=== PATIENT | male | born 1995 | race Caucasian/White ===

== ENCOUNTER 2022-05-30 17:42 | Emergency (ER) | payer BC ==
[~2022-05-30] VITALS: Ht 180.3 cm; Wt 74.8 kg
[2022-05-30 17:44] VITALS: BP 111/68
[2022-05-30 19:00] LABS: BASO # 0.1 10*3/uL (0.0-0.1); BASO % 0.6 % (0.0-1.0); EOS # 0.2 10*3/uL (0.0-0.4); EOS % 1.8 % (1.0-4.0); LYMPH # 2.7 10*3/uL (1.3-4.4); LYMPH % 27.9 % (27.0-41.0); MEAN CELL VOLUME 97.8 fl (80.0-94.0); MEAN CORPUSCULAR HGB 32.3 pg (27.0-31.0); MONO # 1.1 10*3/uL (0.1-1.0); MONO % 11.2 % (3.0-9.0); NEUT # 5.6 10*3/uL (2.3-7.9); NEUT % 58.3 % (47.0-73.0); PLATELET COUNT AUTOMATED 212 10*3/uL (130-400); RED BLOOD COUNT 4.09 10*6/uL (4.50-5.90); RED CELL DISTRI WIDTH 12.6 % (0-14.5); WHITE BLOOD COUNT 9.7 10*3/uL (4.8-10.8)
[2022-05-30 19:28] LABS: ALKALINE PHOSPHATASE 61 U/L (45-117); BUN 20 mg/dl (7-24); CHLORIDE 104 mmol/L (98-107); CREATININE 1.38 mg/dL (0.70-1.30); POTASSIUM 3.9 mmol/L (3.5-5.1); SGOT/AST 259 IU/L (3-35); SGPT/ALT 119 U/L (12-78); SODIUM 137 mmol/L (136-145); TOTAL PROTEIN 6.6 gm/dL (6.4-8.2)
[2022-05-30 21:21] LABS: ETHYL ALCOHOL < 3.0 mg/dl (<3); URIC ACID 5.8 mg/dL (3.5-7.2)
== END 2022-05-30 21:05 | disposition home or self-care (01) ==
LOC: ED 17:42
PROVIDERS: Nurse Practitioner Family
DX: K75.89 Other specified inflammatory liver diseases (principal); Z87.891 Personal history of nicotine dependence

== ENCOUNTER → 2022-06-09 | Outpatient (CLI) | payer BC ==
[2022-06-09 11:51] LABS: MEAN CORPUSCULAR HGB 31.7 pg (27.0-31.0); MEAN PLATELET VOLUME 9.9 fl (9.6-12.3); RED BLOOD COUNT 4.79 10*6/uL (4.50-5.90); RED CELL DISTRI WIDTH 12.1 % (0-14.5); WHITE BLOOD COUNT 7.4 10*3/uL (4.8-10.8)
[2022-06-09 12:10] LABS: ALKALINE PHOSPHATASE 79 U/L (45-117); BUN 9 mg/dl (7-24); CHLORIDE 104 mmol/L (98-107); CREATININE 1.35 mg/dL (0.70-1.30); POTASSIUM 3.8 mmol/L (3.5-5.1); SGOT/AST 18 IU/L (3-35); SGPT/ALT 49 U/L (12-78); SODIUM 139 mmol/L (136-145); TOTAL PROTEIN 7.5 gm/dL (6.4-8.2)
[2022-06-10 05:06] LABS: HBSAG Negative (Negative); HEP B CORE AB, IGM Negative (Negative); HEPATITIS C ANTIBODY <0.1 (0.0-0.9)
[2022-06-20 22:05] LABS: 7-AMINOCLONAZEPAM Negative (.); MIDAZOLAM Negative (.)
== END | disposition home or self-care (01) ==
LOC: LAB 11:24
PROVIDERS: ATTEND Family Medicine
DX: Z79.899 Other long term (current) drug therapy (principal)

== ENCOUNTER 2022-11-30 13:34 | Inpatient (IN) | payer BC ==
[~2022-11-30] VITALS: Ht 180.3 cm; Wt 75.3 kg
[2022-11-30 14:12] VITALS: BP 112/81
[2022-11-30 15:33] LABS: BASO # 0.1 10*3/uL (0.0-0.1); BASO % 0.9 % (0.0-1.0); EOS # 0.5 10*3/uL (0.0-0.4); EOS % 5.6 % (1.0-4.0); HEMATOCRIT 46.6 % (42.0-52.0); LYMPH # 2.5 10*3/uL (1.3-4.4); LYMPH % 27.6 % (27.0-41.0); MEAN CORPUSCULAR HGB 29.7 pg (27.0-31.0); MEAN PLATELET VOLUME 9.7 fl (9.6-12.3); MONO # 0.8 10*3/uL (0.1-1.0); MONO % 8.7 % (3.0-9.0); NEUT # 5.1 10*3/uL (2.3-7.9); NEUT % 56.9 % (47.0-73.0); PLATELET COUNT AUTOMATED 302 10*3/uL (130-400); RED BLOOD COUNT 5.18 10*6/uL (4.50-5.90); RED CELL DISTRI WIDTH 12.7 % (0-14.5); WHITE BLOOD COUNT 8.9 10*3/uL (4.8-10.8)
[2022-11-30 15:49] LABS: ALKALINE PHOSPHATASE 163 U/L (46-116); BUN 13 mg/dl (9-23); CHLORIDE 103 mmol/L (98-107); POTASSIUM 3.6 mmol/L (3.4-5.1); SGPT/ALT 474 U/L (10-49); TOTAL PROTEIN 7.9 gm/dL (6.0-8.0)
[2022-11-30 15:50] LABS: ETHYL ALCOHOL < 3.0 mg/dl (<3)
[2022-11-30 16:38] LABS: BILIRUBIN 1+ (Negative); BLOOD Negative (Negative); CLARITY Clear (Clear); COLOR Dark Yellow (Yellow); GLUCOSE Negative (Negative); KETONE Trace (Negative); LEUKO ESTERASE Trace (Negative); NITRITE Negative (Negative); PH 5.5 (4.5-8.0); SPECIFIC GRAVITY >= 1.030 (1.001-1.030)
[2022-11-30 16:46] LABS: URINE AMPHETAMINES Negative (1000ng/ml); URINE BARBITURATES Negative (200ng/ml); URINE BENZODIAZEPINES Negative (200ng/ml); URINE CANNABINOIDS (THC) Positive (50ng/ml); URINE COCAINE Positive (300ng/ml); URINE METHADONE Negative (300ng/ml); URINE OPIATES Negative (300ng/ml); URINE PHENCYCLIDINE Negative (25ng/ml)
[2022-11-30 17:06] LABS: BACTERIA 1+; CALCIUM OXALATE CRYSTALS 1+; MUCOUS 1+
[2022-11-30 19:55] VITALS: BP 109/71
[2022-11-30 23:25] VITALS: BP 125/16
[2022-12-01 01:49] VITALS: BP 125/76
[2022-12-01 04:45] LABS: BASO # 0.1 10*3/uL (0.0-0.1); BASO % 0.8 % (0.0-1.0); EOS # 0.1 10*3/uL (0.0-0.4); EOS % 1.7 % (1.0-4.0); HEMATOCRIT 43.7 % (42.0-52.0); LYMPH # 1.8 10*3/uL (1.3-4.4); LYMPH % 29.6 % (27.0-41.0); MEAN CELL VOLUME 89.2 fl (80.0-94.0); MEAN CORPUSCULAR HGB 29.6 pg (27.0-31.0); MEAN CORPUSCULAR HGB CONC 33.2 g/dl (33.0-37.0); MEAN PLATELET VOLUME 9.6 fl (9.6-12.3); MONO # 0.3 10*3/uL (0.1-1.0); MONO % 5.5 % (3.0-9.0); NEUT # 3.7 10*3/uL (2.3-7.9); NEUT % 62.2 % (47.0-73.0); PLATELET COUNT AUTOMATED 312 10*3/uL (130-400); RED CELL DISTRI WIDTH 12.6 % (0-14.5)
[2022-12-01 04:57] LABS: BUN 12 mg/dl (9-23); CHLORIDE 108 mmol/L (98-107); LIPASE 23 U/L (12-53)
[2022-12-01 06:34] LABS: INTERNATIONAL NORM RATIO 1.1 (2.0-3.5)
[2022-12-01 08:00] VITALS: BP 106/61
[2022-12-01 12:00] VITALS: BP 118/73
[2022-12-01 16:00] VITALS: BP 107/69
[2022-12-01 20:00] VITALS: BP 105/65
[2022-12-02] VITALS: BP 101/61
[2022-12-02 08:00] VITALS: BP 115/73
[2022-12-02 12:00] VITALS: BP 124/76
[2022-12-02 16:00] VITALS: BP 102/55
[2022-12-02 20:00] VITALS: BP 92/55
[2022-12-03] VITALS: BP 88/55
[2022-12-03 08:00] VITALS: BP 99/60
[2022-12-03 12:00] VITALS: BP 112/57
== END 2022-12-03 14:00 | disposition home or self-care (01) | DRG 897 ==
LOC: ED 13:34 → EDHOLD 17:23 → 4E 17:23 → EDHOLD 18:03 → 4E 23:08
PROVIDERS: Emergency Medicine; Student in an Organized Health Care Education/Training Program; ADMIT Student in an Organized Health Care Education/Training Program; ATTEND Student in an Organized Health Care Education/Training Program
DX: F11.23 Opioid dependence with withdrawal (principal); F41.9 Anxiety disorder, unspecified; F10.239 Alcohol dependence with withdrawal, unspecified; G25.81 Restless legs syndrome; F17.210 Nicotine dependence, cigarettes, uncomplicated; R73.9 Hyperglycemia, unspecified; R74.01 Elevation of levels of liver transaminase levels; Z71.6 Tobacco abuse counseling

== ENCOUNTER 2022-12-19 18:55 | Emergency (ER) | payer BC | END 2022-12-19 19:25 | disposition left against medical advice (07) | LOC: ED 18:55 | DX: T50.904A Poisoning by unspecified drugs, medicaments and biological substances, undetermined, initial encounter (principal); R40.4 Transient alteration of awareness; Z53.21 Procedure and treatment not carried out due to patient leaving prior to being seen by health care provider; Y92.89 Other specified places as the place of occurrence of the external cause ==